=== PATIENT | female | born 1955 | race Caucasian/White ===

== ENCOUNTER 2024-08-22 11:25 | Inpatient (IN) ==
[2024-08-22 12:25] LABS: Basophils # (Auto) 0.05 K/mcL (0.00-0.30); Basophils % (Auto) 0.5 % (0.0-2.0); Eosinophils # (Auto) 0.08 K/mcL (0.00-0.70); Eosinophils % (Auto) 0.8 % (0.0-7.0); Hematocrit 41.6 % (34.1-44.9); Hemoglobin 13.2 g/dL (11.2-15.7); Lymphocytes # (Auto) 1.71 K/mcL (1.50-4.80); Lymphocytes % (Auto) 16.3 % (15.5-49.0); Mean Cell Volume 93.9 fL (80.0-100.0); Mean Corpuscular HGB Conc 31.7 g/dL (31.0-36.0); Mean Platelet Volume 9.7 fL (8.8-12.5); Monocytes # (Auto) 1.11 K/mcL (0.10-0.90); Monocytes % (Auto) 10.6 % (1.0-12.0); Neutrophils % (Auto) 71.6 % (38.0-78.0); Platelet Count 289 K/mcL (140-440); RBC 4.43 M/mcL (3.59-5.38); Red Cell Distribution Width 15.8 % (11.5-14.5); WBC 10.5 K/mcL (4.5-11.0)
[2024-08-22 12:46] LABS: Blood Urea Nitrogen 16 mg/dL (8-23); Calcium 9.3 mg/dL (8.6-10.4); Carbon Dioxide 27 mmol/L (22-30); Chloride 98 mmol/L (96-108); Glomerular Filtration Rate 90; Glucose 119 mg/dL (70-105); Potassium 3.9 mmol/L (3.3-5.1); Sodium 137 mmol/L (133-145)
[2024-08-22] MEDS: cefTRIAXone 2 GM in DEXTROSE 5% IN WATER 50 ML IV ONE (12:53)
[2024-08-22] MEDS: AZITHROMYCIN 500 MG in 0.9 % SODIUM CHLORIDE 250 ML IV ONE (13:28)
[2024-08-22] MEDS: ONDANSETRON 4 MG/2 ML VIAL IV ONE (13:45)
[2024-08-22] MEDS: FUROSEMIDE 20 MG/2 ML VIAL IV ONE (15:44)
[2024-08-22] MEDS: IPRATROPIUM/ALBUTEROL 3 ML AMPUL.NEB NEB ONE (15:53)
[2024-08-22] MEDS ORDERED: SENNOSIDES 1 TABLET PO PRN (16:27)
[2024-08-22] MEDS ORDERED: ONDANSETRON 4 MG/2 ML VIAL IV PRN (16:27)
[2024-08-22] MEDS ORDERED: ACETAMINOPHEN 325 MG TABLET PO PRN (16:27)
[2024-08-22] MEDS ORDERED: LACTULOSE 20 GM/30 ML ORAL.SOL PO PRN (16:27)
[2024-08-22] MEDS ORDERED: IOPAMIDOL 100 ML BOTTLE IV ONE (19:17)
[2024-08-22] MEDS: DOCUSATE SODIUM 100 MG CAPSULE PO SCH (20:01)
[2024-08-22] MEDS: CITALOPRAM 20 MG TABLET PO SCH (20:45)
[2024-08-22] MEDS: GABAPENTIN 300 MG CAPSULE PO SCH (20:45)
[2024-08-22] MEDS: OXYBUTYNIN CHLORIDE 5 MG TAB.XL.24H PO SCH (20:45)
[2024-08-22] MEDS: 0.9 % SODIUM CHLORIDE 10 ML SYRINGE IV SCH (20:45)
[2024-08-23 06:53] LABS: Basophils # (Auto) 0.06 K/mcL (0.00-0.30); Basophils % (Auto) 0.7 % (0.0-2.0); Eosinophils # (Auto) 0.22 K/mcL (0.00-0.70); Eosinophils % (Auto) 2.6 % (0.0-7.0); Hemoglobin 12.5 g/dL (11.2-15.7); Lymphocytes # (Auto) 1.52 K/mcL (1.50-4.80); Lymphocytes % (Auto) 17.9 % (15.5-49.0); Mean Cell Volume 95.1 fL (80.0-100.0); Mean Corpuscular HGB Conc 32.1 g/dL (31.0-36.0); Mean Platelet Volume 10.1 fL (8.8-12.5); Monocytes # (Auto) 0.93 K/mcL (0.10-0.90); Neutrophils % (Auto) 67.6 % (38.0-78.0); Platelet Count 314 K/mcL (140-440); Red Cell Distribution Width 15.9 % (11.5-14.5); WBC 8.5 K/mcL (4.5-11.0)
[2024-08-23 07:20] LABS: ALT/SGPT 24 U/L (<40); AST/SGOT 21 U/L (<32); Albumin 3.3 gm/dL (3.2-5.2); Albumin/Globulin Ratio 0.9 (1.0-2.3); Alkaline Phosphatase 392 U/L (39-117); Bilirubin,Direct < 0.2 mg/dL (0-0.3); Bilirubin,Total 0.4 mg/dL (0.1-1.0); Blood Urea Nitrogen 17 mg/dL (8-23); Calcium 9.1 mg/dL (8.6-10.4); Carbon Dioxide 30 mmol/L (22-30); Chloride 99 mmol/L (96-108); Globulin 3.6 gm/dL (2.2-3.7); Glomerular Filtration Rate 76; Glucose 101 mg/dL (70-105); Lactate Dehydrogenase 306 U/L (135-225); Phosphorous 4.2 mg/dL (2.5-4.5); Potassium 3.9 mmol/L (3.3-5.1); Sodium 140 mmol/L (133-145); Triglycerides 78 mg/dL (<150); Uric Acid 4.7 mg/dL (2.5-8.0)
[2024-08-23] MEDS: cefTRIAXone 2 GM in DEXTROSE 5% IN WATER 50 ML IV SCH (09:17)
[2024-08-23] MEDS: predniSONE 20 MG TABLET PO SCH (09:22)
[2024-08-23] MEDS: GABAPENTIN 300 MG CAPSULE PO SCH (09:22)
[2024-08-23] MEDS: METOPROLOL TARTRATE 50 MG TABLET PO SCH (09:22)
[2024-08-23] MEDS: PANTOPRAZOLE 40 MG TABLET PO SCH (09:22)
[2024-08-23] MEDS: AZITHROMYCIN 500 MG in 0.9 % SODIUM CHLORIDE 250 ML IV SCH (09:23)
[2024-08-23] MEDS: ENOXAPARIN 40 MG/0.4 ML SYRINGE SQ SCH (09:23)
[2024-08-23] MEDS: ALBUTEROL SULFATE 2.5 MG/3 ML NEBULIZER NEB PRN (11:22)
[2024-08-24] MEDS: IPRATROPIUM/ALBUTEROL 3 ML AMPUL.NEB NEB SCH (08:52)
[2024-08-24] MEDS: METOPROLOL SUCCINATE 50 MG TAB.XL.24H PO SCH (09:00)
[2024-08-24] MEDS: amLODIPine 5 MG TABLET PO SCH (13:52)
[2024-08-24] MEDS: LOSARTAN 50 MG TABLET PO SCH (20:54)
[2024-08-25] MEDS: guaiFENesin 600 MG TAB.SR.12H PO SCH (11:43)
[2024-08-25] MEDS: NAPROXEN 250 MG TABLET PO PRN (11:49)
[2024-08-25] MEDS ORDERED: DEXTROSE 50% 50 ML VIAL IV PRN (13:40)
[2024-08-25] MEDS ORDERED: DEXTROSE 31 GM ORAL.SUSP PO PRN (13:40)
[2024-08-25] MEDS: INSULIN LISPRO 1 UNIT/0.01 ML UNIT SQ SCH (17:40)
[2024-08-25] MEDS ORDERED: guaiFENesin 600 MG TAB.SR.12H PO SCH (21:00)
[2024-08-26] MEDS: IPRATROPIUM/ALBUTEROL 3 ML AMPUL.NEB NEB PRN (12:26)
== END 2024-08-27 12:00 | disposition home or self-care (01) | DRG 193 ==
LOC: ED 11:25 → ICU 16:10 → MEDSUR 08-25 16:19
PROVIDERS: ADMIT Internal Medicine; ATTEND Internal Medicine